=== PATIENT | female | born 1995 | race Caucasian/White ===

== ENCOUNTER 2017-01-16 01:07 | Emergency (ER) | payer BC ==
--- NOTE | ~2017-01-16 | CR21 ---
[facility] A Service of [facility] & [facility] RADIOLOGY TEXT RESULTS PATIENT: SEBAS HAYES LOCATION: [facility] : [birth year] UNIT #: [id number] AGE: [address]: Aj Garnett MD SEX: F ORDER DR: [id number] [facility] [address] [facility] [place], [place] [address] [id number] E MR#: [id number] Acc #: [id number] NAME: SEBAS HAYES : 1995 SEX: F STUDY DATE/TIME: 01/16/2017 1:05 UNIT: [facility] ROOM: STUDY DESCRIPTION: CR Ankle Min 3 Views Rt Attending Physician: Aj Garnett M.D. Ordering Physician: Aj Garnett M.D. Primary Care Physician: Aravind Edwards Jr., M.D. MEDICAL IMAGING REPORT This report is preliminary unless electronic signature is present EXAM 3 views right ankle, 01/16/2017. HISTORY Right ankle pain and swelling after twisting it today. COMPARISON STUDIES None FINDINGS Right ankle soft tissue swelling is present laterally. No acute displaced fracture is identified. There is no joint dislocation. No retained radiopaque foreign body is seen. IMPRESSION Right ankle soft tissue swelling laterally. No acute osseous abnormality. Dictated by... Debbie Diaz M.D. THIS IS AN ELECTRONICALLY VERIFIED REPORT Debbie Diaz M.D. at 01/16/2017 9:56 PM ALINE/brandon TD: 01/16/2017 11:36 JOB #: [id number] MEDICAL IMAGING REPORT COPY
[~2017-01-16 01:07] MED LIST: ADVAIR 1001 DISK W/D PO; ALBUTEROL MININEB NEB; ALBUTEROL17 GM INH; BACTRIM DS TABL1 TA1 PO; PYRIDIUM PO; SINGULAIR PO; ZYRTEC PO
== END 2017-01-16 03:21 | disposition home or self-care (01) ==
LOC: CED 01:07
DX: S93.401A Sprain of unspecified ligament of right ankle, initial encounter (principal); J45.909 Unspecified asthma, uncomplicated; X50.1XXA Overexertion from prolonged static or awkward postures, initial encounter; Y92.9 Unspecified place or not applicable
CPT/HCPCS: 29540; 73610; 99283